=== PATIENT | female | born 1950 | race Caucasian/White ===

== ENCOUNTER 2018-10-28 06:54 | Day surgery (SDC) | payer OTHER | END 2018-10-28 13:20 | disposition home or self-care (01) | LOC: AMB-ENDOS 06:54 → CIR.AMB 13:30 | DX: D12.7 Benign neoplasm of rectosigmoid junction (principal) ==

== ENCOUNTER 2020-01-05 06:39 | Day surgery (SDC) | payer OTHER | END 2020-01-05 12:10 | disposition home or self-care (01) | LOC: AMB-ENDOS 06:39 | PROVIDERS: ATTEND Surgery | DX: D12.5 Benign neoplasm of sigmoid colon (principal); D12.8 Benign neoplasm of rectum; K52.89 Other specified noninfective gastroenteritis and colitis; Z20.828 Contact with and (suspected) exposure to other viral communicable diseases ==